=== PATIENT | male | born 1950 | race Caucasian/White ===

== ENCOUNTER 2024-08-28 08:16 | Day surgery (SDC) | payer MEDICARE ==
[2024-08-28 08:35] VITALS: TEMP 97
[2024-08-28] MEDS: IV FLUID CONTINUATION 1,000 ML IV ONE (08:38)
[2024-08-28 08:48] LABS: Glucose,Whole Blood 149 mg/dL (70-110)
[2024-08-28] MEDS: LACTATED RINGERS 1,000 ML IV SCH (08:48)
[2024-08-28] MEDS ORDERED: PROPOFOL 10 MG/ML 20 ML VIAL IV ONE (09:12)
--- NOTE | 2024-08-28 09:29 | P.PCN ---
Date of Procedure: 08/28/24 Procedure(s) Performed: BRIEF HISTORY: Patient is a 74-year-old pleasant white male scheduled for an elective colonoscopy as a part of follow-up of rectal cancer diagnosed in October 2022. He is status post chemoradiation patient had good response in his and remission. PROCEDURE PERFORMED: Colonoscopy with biopsy. PREOPERATIVE DIAGNOSIS: Follow-up rectal cancer diagnosed in October 2022 status post chemoradiation. IV sedation per Anesthesia. PROCEDURE: After informed consent was obtained, the patient, was brought into the endoscopy unit. IV sedation was administered by Anesthesia under continuous monitoring. Digital rectal examination was normal. Initially the Olympus CF-160 flexible video colonoscope was then inserted in the rectum, gradually advanced into the cecum without any difficulty. Careful examination was performed as the scope was gradually being withdrawn. Ileocecal valve and the appendiceal orifice were visualized and appeared normal. Prep was excellent. Mucosa of the cecum, ascending colon, transverse colon, descending colon, sigmoid colon, and rectum appeared normal. Retroflexion was performed in the rectum and no lesions were seen. The patient tolerated the procedure well. 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 RECOMMENDATIONS: Findings of this examination were discussed with the patient a s well as his family. He was advised to follow-up with the biopsy results. Recommended repeat colonoscopy in 1 to 2 years.
[2024-08-28 09:37] VITALS: RESP 20
[2024-08-28 09:54] VITALS: BP 120/74; PULSE 60
== END 2024-08-28 10:12 | disposition home or self-care (01) ==
LOC: ORWHC2ENDO 08:16
PROVIDERS: ATTEND Internal Medicine Gastroenterology
DX: Z08 Encounter for follow-up examination after completed treatment for malignant neoplasm (principal); K62.7 Radiation proctitis; E11.9 Type 2 diabetes mellitus without complications; Z85.048 Personal history of other malignant neoplasm of rectum, rectosigmoid junction, and anus; Z79.84 Long term (current) use of oral hypoglycemic drugs; Z92.21 Personal history of antineoplastic chemotherapy; Z98.890 Other specified postprocedural states; Y84.2 Radiological procedure and radiotherapy as the cause of abnormal reaction of the patient, or of later complication, without mention of misadventure at the time of the procedure
CPT/HCPCS: 88305; 45380; J2704